=== PATIENT | female | born 1990 | race Caucasian/White ===

== ENCOUNTER 2017-10-12 05:47 | Outpatient (CLI) | payer BC ==
[~2017-10-12] VITALS: Ht 172.7 cm; Wt 86.2 kg
[2017-10-13] MEDS ORDERED: OXYC-471 PO (12:13)
== END 2017-10-12 12:50 ==
LOC: PREOP 05:47
PROVIDERS: ATTEND Obstetrics & Gynecology
DX: Z01.818 Encounter for other preprocedural examination (principal); N93.8 Other specified abnormal uterine and vaginal bleeding; D64.9 Anemia, unspecified

== ENCOUNTER 2017-10-13 10:48 | Day surgery (SDC) | payer BC ==
[~2017-10-13] VITALS: Ht 172.7 cm; Wt 86.2 kg
--- OUTSIDE RECORDS SUMMARY | 2017-10-13 10:54 | XMS REPORT | Continuity of Care Document ---
Author Author [facility] Organization [facility] Address Unknown Phone Unavailable Allergies Active Description Code Type Severity Reaction Onset Reported/Identified Relationship to Patient Clinical Status Yes NKA NKA Drug Allergy N/A N/A Medications There is no data. Problems Date Dx Coded Attending Type Code Diagnosis Diagnosed By 05/10/2014 Puma Hernandez 844.2 Sprain of cruciate ligament of knee Procedures There is no data. Results There is no data. Encounters ACCT No. Visit Date/Time Discharge Status Pt. Type Provider Facility Loc./Unit Complaint [id number] 05/08/2014 07:27:00 05/09/2014 09:45:00 DIS Outpatient MaryPuma lee [facility] INPT Right Knee Arthroscopy with ACL Reconstruction [id number] 09/22/2017 16:00:00 09/22/2017 23:59:59 CLS Outpatient DELLA SANDRASHAHEENI [facility] [id number] 11/11/2015 09:46:28 11/11/2015 23:59:59 CLS Outpatient Robert Flores [id number] 06/06/2015 12:02:04 06/06/2015 23:59:59 CLS Outpatient Robert Flores
[2017-10-13 11:15] VITALS: BP 123/84
[2017-10-13] MEDS ORDERED: ceFAZolin INJECTION 1,000 MG in NS (IVPB) 50 ML IV ONE (11:30)
[2017-10-13 11:40] LABS: BASOPHILS % (AUTO) 0 % (0-10); EOSINOPHILS # (AUTO) 0.1 10^3/uL (0.0-0.3); EOSINOPHILS % (AUTO) 2 % (0-10); HEMATOCRIT 38 % (35-52); HEMOGLOBIN 12.5 G/DL (11.5-16.0); LYMPHOCYTES # (AUTO) 2.6 X 10^3 (1.0-4.0); LYMPHOCYTES % (AUTO) 35 % (12-44); MEAN CORPUSCULAR HEMOGLOBIN 26 PG (25-34); MEAN CORPUSCULAR HGB CONC 33 G/DL (32-36); MEAN CORPUSCULAR VOLUME 78 FL (80-99); MEAN PLATELET VOLUME 11.1 FL (7.4-10.4); MONOCYTES # (AUTO) 0.7 X 10^3 (0.0-1.0); MONOCYTES % (AUTO) 9 % (0-12); NEUTROPHILS # (AUTO) 3.8 X 10^3 (1.8-7.8); NEUTROPHILS % (AUTO) 53 % (42-75); PLATELET COUNT 303 10^3/uL (130-400); RED BLOOD COUNT 4.91 10^6/uL (4.35-5.85); RED CELL DISTRIBUTION WIDTH 14.9 % (10.0-14.5); WHITE BLOOD COUNT 7.2 10^3/uL (4.3-11.0)
[2017-10-13] MEDS ORDERED: ONDANSETRON 4 MG/2 ML (SDV) Z0FRAN IV ONE (11:45)
[2017-10-13] MEDS ORDERED: FAMOTIDINE 20MG/2ML IV (PEPCID) IV ONE (11:45)
[2017-10-13] MEDS ORDERED: LIDOCAINE PF 2% 5 ML (XYLOCAINE) VIAL ONE (11:53)
[2017-10-13] MEDS ORDERED: proPOfol 200 MG/20 ML (DIPRIVAN) VIAL IV ONE (11:53)
[2017-10-13] MEDS ORDERED: MIDAZOLAM 2 MG/2 ML (VERSED) VIAL ONE (11:53)
[2017-10-13] MEDS ORDERED: ONDANSETRON 4 MG/2 ML (SDV) Z0FRAN ONE ×2 (11:53→11:54)
[2017-10-13] MEDS ORDERED: DEXAMETHASONE 10 MG/ML (DECADRON) 1 ML VIAL ONE (11:53)
[2017-10-13] MEDS ORDERED: SEVOFLURANE (ULTANE) 15 ML INHAL SOLN ONE ×7 (11:53→14:07)
[2017-10-13] MEDS ORDERED: fentaNYL INJECTION 100 MCG/2 ML AMP ONE ×2 (11:54→13:46)
[2017-10-13] MEDS ORDERED: ceFAZolin 1,000 MG (ANCEF) VIAL ONE (11:54)
[2017-10-13] MEDS ORDERED: NS (IVPB) 50 ML ONE (11:54)
[2017-10-13] MEDS ORDERED: FAMOTIDINE 20MG/2ML IV (PEPCID) ONE (11:56)
[2017-10-13] MEDS: LACTATED RINGERS 1,000 ML IV PRN ×2 (11:59→14:46)
--- NOTE | 2017-10-13 12:08 | Progress Note-Pre Operative ---
Pre-Operative Progress Note H&P Reviewed The H&P was reviewed, patient examined and no changes noted. Date Seen by Provider: Oct 13, 2017 Time Seen by Provider: 12:07 Date H&P Reviewed: Oct 13, 2017 Time H&P Reviewed: 12:07 Pre-Operative Diagnosis: DUB / Mass KACIE JORDAN MD Oct 13, 2017 12:08 pm
[2017-10-13] MEDS ORDERED: D5 LR IV SOLUTION 1,000 ML IV SCH (12:10)
--- NOTE | 2017-10-13 12:10 | Progress Note-Post Operative ---
Post-Operative Progess Note Surgeon (s)/Night Clerk (s) Surgeon KACIE JORDAN MD Night Clerk: Chika Mccarthy Pre-Operative Diagnosis DUB / Mass Post-Operative Diagnosis same with path pending Procedure & Operative Findings Date of Procedure 10/13/17 Procedure Performed/Findings Hysteroscopy with mass excision and D&C Anesthesia Type GETA Estimated Blood Loss Estimated blood loss (mL): Minimal Specimens/Packing Specimens Removed INTRAUTERINE MASS AND ENDOMETRIAL CURETTINGS Packing: NONE KACIE JORDAN MD Oct 13, 2017 12:10
[2017-10-13] MEDS ORDERED: OXYC-471 PO (12:13)
[2017-10-13] MEDS ORDERED: MEPERIDINE (DEMEROL) INJ 100 MG/ML IM ONE (12:15)
[2017-10-13] MEDS ORDERED: oxyCODONE/APAP 5/325MG (PERCOCET 5) TABLET PO PRN (12:15)
[2017-10-13] MEDS ORDERED: KETOROLAC 30 MG/ML VIAL IVP ONE (12:15)
[2017-10-13] MEDS ORDERED: PROMETHAZINE INJ 25 MG/ML (PHENERGAN) AMP IM ONE (12:15)
[2017-10-13] MEDS ORDERED: ONDANSETRON 4 MG/2 ML (SDV) Z0FRAN IVP PRN (12:15)
[2017-10-13] MEDS ORDERED: ESTROGENS CONJ IV 25 MG/5 ML (PREMARIN) VIAL IVP ONE (12:15)
--- NOTE | 2017-10-13 12:15 | Discharge Instructions ---
Discharge Instructions Discharge Medications New, Converted or Re-Newed RX: RX on Chart Patient Instructions Patient Instructions: as directed Return to The Hospital For: as diredcted Activity & Diet Discharge Diet: No Restrictions Activity as Tolerated: No Orders-Post D/C & Referrals Follow Up Appt: Call to make follow up appt. for patient in 2 weeks. Activity: Rest for 24 hours, than as tolerated. Diet: As tolerated-Clear Liquids only if nauseated. may shower or tub bathe as desired. No driving for 24 hours, no alcoholic beverages for 24 hours, and nothing per vagina (no tampons, douching, or intercourse) for 2 weeks. Patient to return to the clinic as soon as possible for: Temperature greater than 101F, Severe Pain, Foul discharge from incision or vagina, Excessive Bleeding (more than a period). KACIE JORDAN MD Oct 13, 2017 12:14 pm
[2017-10-13] MEDS ORDERED: KETOROLAC 30 MG/ML VIAL ONE (13:13)
[2017-10-13] MEDS ORDERED: morphine INJ 10 MG/ML 1ML (SYR OR VIAL) ONE (14:19)
[2017-10-13] MEDS ORDERED: WATER (STERILE) FOR INJECTION 10 ML ONE (14:19)
[2017-10-13] MEDS ORDERED: ESTROGENS CONJ IV 25 MG/5 ML (PREMARIN) VIAL ONE (14:19)
[2017-10-13] MEDS ORDERED: MEPERIDINE (DEMEROL) INJ 50 MG/ML ONE (14:25)
[2017-10-13] MEDS ORDERED: morphine INJ 10 MG/ML 1ML (SYR OR VIAL) IVP PRN (14:30)
[2017-10-13] MEDS ORDERED: MEPERIDINE (DEMEROL) INJ 50 MG/ML IVP PRN (14:30)
[2017-10-13 15:15] VITALS: BP 114/73
[2017-10-13 15:45] VITALS: BP 116/64
[2017-10-13 16:15] VITALS: BP 129/64
[2017-10-13 16:32] VITALS: BP 129/64
--- NOTE | 2017-10-13 21:54 | OPERATIVE REPORT ---
DATE OF SERVICE: 10/13/2017 PREOPERATIVE DIAGNOSES: Dysfunctional uterine bleeding, intrauterine mass. POSTOPERATIVE DIAGNOSES: Dysfunctional uterine bleeding, intrauterine mass with pathology pending. OPERATIVE PROCEDURE: Hysteroscopy with resection of posterior uterine wall, submucosal fibroid as well as D and C. OPERATIVE DESCRIPTION: With the patient in supine position under satisfactory general anesthesia, she was repositioned in dorsal lithotomy position in the [facility] stirrups and prepped and draped in the usual fashion for vaginal surgery. Urinary bladder was drained with a straight catheter. A weighted speculum placed in posterior fornix of vagina, cervix exposed and grasped anteriorly with single tooth tenaculum. Uterus was sounded to 9 cm with uterine sound. Cervix was then serially dilated to a #13 Hegar dilator. Hysteroscope was introduced and immediately apparently there was a large what appeared to be a fibroid emanating from the posterior lower uterine segment wall. An attempt was made to resect the base that was unsuccessful, so then using the resectoscope, the mass was taken out and multiple fragments using cautery set at 50 for the cut on the resectoscope. All of the fragments of tissue were sent to pathology for permanent section. A D and C was performed as well. That tissue was sent concurrent with the other tissues. Eventually, the entire endometrial cavity was completely visualized. There was appearance of may be another intramural fibroid in the posterior uterine wall, but the mass that was occupying the uterine cavity was completely removed down to the wall of the uterus and then slightly undercutting in order to try to remove the bulk of that mass that was in the wall of the uterus as well. Estimated blood loss was minimal. A total of 15,000 mL of glycine was used, although about 300 mL of glycine was recovered in the suction and there was a fairly significant quantity of glycine on the floor, so the bulk of the distending medium was recovered. The cervix had been dilated well beyond the diameter of the resectoscope, so the loss around the scope was fairly significant, but that was intended to allow for removal of the tissue fragments as the resection was performed. The patient sustained a small laceration on the anterior lip of the cervix from the tenaculum that had been placed. This was sutured with a [id number] suture of 2-0 Vicryl. Hemostasis was complete at this point. The patient tolerated the procedure well and was uneventfully awakened from general anesthesia and transferred to recovery room in stable condition with plans for discharge home PAR. Sponge and needle counts were correct at the end of procedure. Job ID: [id number] DocumentID: [id number] Dictated Date: 10/13/2017 14:13:26 Variety Performer Date: 10/13/2017 21:54:09 Dictated By: KACIE JORDAN MD
== END 2017-10-13 16:32 | disposition home or self-care (01) ==
LOC: SDC 10:48
PROVIDERS: ATTEND Obstetrics & Gynecology
DX: N93.8 Other specified abnormal uterine and vaginal bleeding (principal)
CPT/HCPCS: 36415; 84703; 85025; 87081; 88305